=== PATIENT | male | born 1930 | race Caucasian/White ===

== ENCOUNTER 2017-10-05 15:54 | Inpatient (IN) | payer OTHER, MEDICARE ==
[~2017-10-05] VITALS: Ht 182.9 cm; Wt 61.2 kg
--- NOTE | ~2017-10-05 | EKG ---
[address] [address] [place] [address] ELECTROCARDIOGRAM REPORT Name: ZOEY JOEL Room #: 403-P ADM IN M.R.#: [id number] Admission: 10/05/17 Attend Phys: Lise Claros Discharge: Date of : [birth year] Report #: [id number] THIS REPORT FOR: //name// 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 : 1930 Requested By: Meredith Mojica Order Number: [id number] MD: Jared Pearson Measurements Intervals [place] Rate: 89 P: 90 AR: 238 QRS: -18 QRSD: 139 T: 67 QT: 422 QTc: 514 Interpretive Statements Sinus rhythm Atrial premature complex Prolonged AR interval Right bundle branch block Compared to ECG 04/11/2011 09:05:03 Atrial premature complex(es) now present Electronically Signed On 10-06-2017 8:34:02 CDT by Jared Pearson [email or web address] <ELECTRONICALLY SIGNED> By: Jared Pearson MD, [facility] 10/06/17 08 41 41 Jared Pearson MD, [facility] /EPI
--- NOTE | ~2017-10-05 | O ---
[facility] [place] [address] [address] OPERATIVE REPORT Name: ZOEY JOEL Room #: 403-P [facility] IN M.R.#: [id number] Admission: 10/05/17 Attend Phys: Lise Claros Discharge: Date of : [birth year] Report #: [id number] THIS REPORT FOR: //name// CC: Evan Claros DATE OF SERVICE: 10/06/2017 PREOPERATIVE DIAGNOSIS: Left proximal femur intertrochanteric fracture. POSTOPERATIVE DIAGNOSIS: Left proximal femur intertrochanteric fracture. PROCEDURE: Open reduction and internal fixation of left proximal femur fracture with TFN nail fixation. SURGEON: Pito Shea MD INDICATIONS: This frail 87-year-old gentleman is still ambulatory at home using a walker for balance. He fell injuring the left hip and x-rays confirmed a moderately comminuted fracture in the low intertrochanteric region. I discussed with the patient and family treatment options and we elected to go ahead with surgical repair. DESCRIPTION OF PROCEDURE: The patient was taken to the Operating Room where he was placed under general anesthesia. Prophylactic intravenous antibiotics were administered. He was positioned on the fracture table with gentle longitudinal traction and internal rotation, which created a good anatomic realignment of the left proximal femur fracture. Alignment was confirmed with C-arm. The lateral aspect of the left hip and thigh were then meticulously prepped and draped. A small skin incision was made proximal to the greater trochanter and a guidewire passed into the intramedullary canal. The greater trochanter was opened with a reamer and a [employer] TFN nail using the 10 mm diameter size was selected. This was advanced into the canal positioning it appropriately. A second guidewire was placed up into the femoral neck and head in the low slightly posterior position. This seated nicely. A reamer was used and then a helical blade inserted using a 115 mm length blade. This brought the tip of the device to about 1-1.5 cm below the subchondral bone at the femoral head. There appeared to be satisfactory purchase and essentially anatomic alignment. The proximal locking screw was tightened and a distal interference locking screw was placed using the outrigger guide. C-arm views were obtained and demonstrated good position of the fixation device and essentially anatomic realignment of the fracture. [address] [address] [facility]AT[facility] Room #: 403-P [facility] IN M.R.#: [id number] Admission: 10/05/17 Attend Phys: Lise Claros Discharge: Date of : [birth year] Report #: [id number] The incisions were closed and a sterile dressing applied. The patient was awakened and returned to Recovery Room in good condition. <ELECTRONICALLY SIGNED> By: Pito Shea MD 10/07/17 1600 1112 1130 Pito Shea MD /nt
--- NOTE | ~2017-10-05 | HC ---
[facility] [place] [address] [place] [address] CONSULTATION Name: MARYCRUZZOEY Room #: 403-P ADM IN M.R.#: [id number] Admission: 10/05/17 Attend Phys: Lise Claros Discharge: Date of : [birth year] Report #: [id number] THIS REPORT FOR: //name// CC: Evan Claros CHIEF COMPLAINT: Left proximal femur fracture. HISTORY OF PRESENT ILLNESS: This frail 87-year-old gentleman is still ambulatory, using a walker for balance, living at home with his with some assistance from family. He fell, injuring the left hip. He sustained no other apparent injuries. He was brought to [facility] where x-rays confirm a comminuted displaced fracture of the left proximal femur in the low intertrochanteric region. At the time of my evaluation, the patient is accompanied by family. He is quite frail, but is alert and seems to understand the situation well. He denies any other areas of discomfort aside from the left hip. The right hip and knee demonstrates satisfactory alignment, range of motion without much discomfort. The left lower extremity is shortened and rotated, consistent with a proximal femur fracture. He has moderate discomfort with any attempted movement in this region. Distal neurologic and vascular status appear to be intact. X-rays of the left hip reveal a fracture in the low intertrochanteric region with varus malalignment and shortening. IMPRESSION: Fracture, left proximal femur. PLAN: I have discussed with the patient and his family the nature of the injury and treatment options. I have suggested surgical repair with a retrograde TFN nail fixation device. They understand that he is certainly at risk for perioperative problems given his advanced age and very frail state. I am hopeful that he can resume touch weightbearing initially and then gradually advance back to full weightbearing over the coming couple of months. We will plan to proceed with his surgery on 10/06. <ELECTRONICALLY SIGNED> By: Pito Shea MD 10/07/17 1600 1119 1311 Pito Shea MD /nt
--- NOTE | ~2017-10-05 | EKG ---
[address] [address] [address] [address] ELECTROCARDIOGRAM REPORT Name: ZOEY JOEL Room #: 354-P ADM IN M.R.#: [id number] Admission: 10/05/17 Attend Phys: Lise Claros Discharge: Date of : [birth year] Report #: [id number] THIS REPORT FOR: //name// 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 : 1930 Requested By: Lise Claros Order Number: [id number] MD: Walter Zamora Measurements Intervals [place] Rate: 100 P: 96 MN: 218 QRS: 2 QRSD: 127 T: 58 QT: 334 QTc: 431 Interpretive Statements Sinus tachycardia Atrial premature complexes in couplets Prolonged MN interval Right bundle branch block Compared to ECG 10/05/2017 16:42:51 Sinus rhythm no longer present Electronically Signed On 10-09-2017 12:57:08 CDT by Walter Zamora [email or web address] <ELECTRONICALLY SIGNED> By: Walter Zamora MD 10/09/17 1257 1631 30 Walter Zamora MD /PRANAY
[~2017-10-05 15:54] MED LIST: FAMOTIDINE PO; NOHOMEMEDICATIONS; ZOFRAN ODT4 MG PO
[2017-10-05 15:55] VITALS: BP 121/71
[2017-10-05] MEDS ORDERED: FLOMAX0.4 MG PO (16:17)
[2017-10-05 18:02] LABS: ABSOLUTE NEUTROPHILS 12.1 thou/uL (1.4-8.2); BASOPHILS 0.2 % (0.0-2.0); EOSINOPHILS 1.3 % (0.0-3.0); HEMATOCRIT 43.9 % (42.0-52.0); HEMOGLOBIN 14.5 gm/dL (14.0-18.0); LYMPHOCYTES 7.3 % (24.0-44.0); MCH 30.9 pg (26.0-34.0); MCHC 33.1 g/dL (28.0-37.0); MCV 93.4 fL (80.0-100.0); MONOCYTES 3.9 % (1.0-8.0); PLATELET COUNT 306 thou/uL (150-400); POLYS 87.3 % (36.0-66.0); RDW 15.9 % (10.5-14.5); WBC 13.8 thou/uL (4.0-11.0)
[2017-10-05 18:09] LABS: CREATININE 0.9 mg/dL (0.7-1.3)
[2017-10-05 18:11] LABS: POTASSIUM 5.1 mmol/L (3.5-5.1)
[2017-10-05 18:24] LABS: TOTAL BILIRUBIN 1.3 mg/dL (<0.1-1.0); TOTAL PROTEIN 7.2 g/dL (6.4-8.2)
[2017-10-05 18:35] VITALS: BP 130/75
[2017-10-05 18:37] LABS: URINE BILIRUBIN NEGATIVE (Negative); URINE BLOOD NEGATIVE (Negative); URINE CLARITY CLEAR; URINE COLOR YELLOW; URINE GLUCOSE-RANDOM* NEGATIVE (Negative); URINE KETONES 1+ (Negative); URINE LEUKOCYTES NEGATIVE (Negative); URINE NITRITE NEGATIVE (Negative); URINE PROTEIN (DIPSTICK) NEGATIVE (Negative)
[2017-10-05 19:12] VITALS: BP 122/72
[2017-10-05 20:31] VITALS: BP 127/75
[2017-10-06] VITALS (10 sets, daily range): BP systolic 123–149; BP diastolic 60–92
[2017-10-06 06:57] LABS: HEMATOCRIT 42.1 % (42.0-52.0); HEMOGLOBIN 13.9 gm/dL (14.0-18.0); MCH 31.1 pg (26.0-34.0); MCHC 33.1 g/dL (28.0-37.0); MCV 93.8 fL (80.0-100.0); RBC 4.49 mil/uL (4.50-6.00); RDW 15.7 % (10.5-14.5)
[2017-10-06] MEDS ORDERED: XALATAN2.5 ML OPHTHALMIC (13:13)
[2017-10-07 05:53] VITALS: BP 120/81
[2017-10-07 08:17] VITALS: BP 97/61
[2017-10-07 10:08] VITALS: BP 105/62
[2017-10-07 16:35] VITALS: BP 106/63
[2017-10-07 19:46] VITALS: BP 133/63
[2017-10-08 03:37] VITALS: BP 125/80
[2017-10-08 03:54] LABS: ALBUMIN 2.4 g/dL (3.4-5.0); CALCIUM 8.1 mg/dL (8.5-10.1); CREATININE 0.7 mg/dL (0.7-1.3); PHOSPHORUS 1.8 mg/dL (2.5-4.9); POTASSIUM 3.8 mmol/L (3.5-5.1)
[2017-10-08 07:57] VITALS: BP 124/82
[2017-10-08 17:41] VITALS: BP 121/80
[2017-10-08 19:54] VITALS: BP 107/74
[2017-10-08 20:05] VITALS: BP 107/74
[2017-10-09] VITALS (8 sets, daily range): BP systolic 96–122; BP diastolic 52–72
[2017-10-10 02:32] LABS: HEMATOCRIT 23.3 % (42.0-52.0); HEMOGLOBIN 8.1 gm/dL (14.0-18.0); MCH 32.3 pg (26.0-34.0); MCHC 34.9 g/dL (28.0-37.0); MCV 92.6 fL (80.0-100.0); RBC 2.51 mil/uL (4.50-6.00); RDW 15.5 % (10.5-14.5); WBC 7.9 thou/uL (4.0-11.0)
[2017-10-10 02:45] LABS: APTT 33.1 Seconds (24.5-32.8); PROTIME 10.6 Seconds (9.3-11.4)
[2017-10-10 03:16] VITALS: BP 125/74
[2017-10-10 11:33] VITALS: BP 133/81
[2017-10-10] MEDS ORDERED: LOPRESSOR25 PO (11:36)
[2017-10-10] MEDS ORDERED: PANTOPRAZOLE SO40 M1 PO (11:37)
[2017-10-10] MEDS ORDERED: B-12500 MCG PO (11:37)
== END 2017-10-10 14:11 | DRG 480 ==
LOC: ER 15:54 → EROBS 16:55 → 4N 16:55 → 3W 10-08 17:27
PROVIDERS: Hospitalist; Nurse Practitioner Family; Physician Assistant
PROC: 0QS704Z Reposition Left Upper Femur with Internal Fixation Device, Open Approach (ICD-10-PCS; principal; 2017-10-06)
DX: S72.142A Displaced intertrochanteric fracture of left femur, initial encounter for closed fracture (principal); E43 Unspecified severe protein-calorie malnutrition; I47.1 Supraventricular tachycardia; Z68.1 Body mass index [BMI] 19.9 or less, adult; M19.91 Primary osteoarthritis, unspecified site; J45.909 Unspecified asthma, uncomplicated; N40.0 Benign prostatic hyperplasia without lower urinary tract symptoms; Z66 Do not resuscitate; I10 Essential (primary) hypertension; F03.90 Unspecified dementia, unspecified severity, without behavioral disturbance, psychotic disturbance, mood disturbance, and anxiety; H54.62 Unqualified visual loss, left eye, normal vision right eye; I48.91 Unspecified atrial fibrillation; W18.39XA Other fall on same level, initial encounter; Y93.89 Activity, other specified; Y92.89 Other specified places as the place of occurrence of the external cause; Y99.8 Other external cause status; Z90.49 Acquired absence of other specified parts of digestive tract; Z87.11 Personal history of peptic ulcer disease; Z79.899 Other long term (current) drug therapy; Z47.89 Encounter for other orthopedic aftercare; Z23 Encounter for immunization
CPT/HCPCS: 10091; 10879; 50010; 50101; 50386; 51412; 51817; 52145; 52146; 56525; 57092; 62110; 62900; 70005